=== PATIENT | female | born 1995 | race Caucasian/White ===

== ENCOUNTER 2017-08-31 13:37 | Emergency (ER) | payer SELFPAY ==
[2017-08-31 14:01] LABS: Urine Blood TRACE (NEG); Urine Glucose NEGATIVE (NEG); Urine Protein NEGATIVE (NEG); Urine Specific Gravity <1.005 (1.005-1.030)
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
[2017-08-31 15:09] VITALS: BP 127/83; O2SAT 100
== END 2017-08-31 15:06 | disposition left against medical advice (07) ==
LOC: ER 13:37
DX: F10.129 Alcohol abuse with intoxication, unspecified (principal)
CPT/HCPCS: 81003; 99282

== ENCOUNTER 2018-02-06 03:43 | Emergency (ER) | payer SELFPAY ==
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
[2018-02-06] MEDS ORDERED: KETOROLAC 30 MG/ML INJ ONE (05:34)
[2018-02-06 05:58] VITALS: TEMP 98.8
[2018-02-06 06:01] VITALS: BP 110/78; O2SAT 99
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
== END 2018-02-06 05:43 | disposition home or self-care (01) ==
LOC: ER 03:43
DX: S02.401A Maxillary fracture, unspecified side, initial encounter for closed fracture (principal); S02.30XA Fracture of orbital floor, unspecified side, initial encounter for closed fracture; Y04.2XXA Assault by strike against or bumped into by another person, initial encounter; Y92.009 Unspecified place in unspecified non-institutional (private) residence as the place of occurrence of the external cause; F17.210 Nicotine dependence, cigarettes, uncomplicated; Z88.0 Allergy status to penicillin
CPT/HCPCS: 70450; 70486; 96372; 99285

== ENCOUNTER 2020-09-27 22:14 | Emergency (ER) | payer OTHER, SELFPAY ==
[2020-09-27] MEDS ORDERED: TETANUS & DIPHTHERIA TOX,ADULT 0.5 ML VIAL ONE (23:16)
[2020-09-28] MEDS ORDERED: ACETAMINOPHEN 500 MG TAB ONE (00:45)
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
[2020-09-28 02:26] VITALS: O2SAT 100
[2020-09-28 02:27] VITALS: TEMP 98.1
[2020-09-28 02:28] VITALS: BP 103/74
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
== END 2020-09-28 02:13 | disposition home or self-care (01) ==
LOC: ER 22:14
PROC: 08QPXZZ Repair Left Upper Eyelid, External Approach (ICD-10-PCS; principal; 2020-09-28)
DX: S01.112A Laceration without foreign body of left eyelid and periocular area, initial encounter (principal); V49.40XA Driver injured in collision with unspecified motor vehicles in traffic accident, initial encounter; Z23 Encounter for immunization; Z88.0 Allergy status to penicillin
CPT/HCPCS: 70450; 70486; 72125; 76377; 90471; 90714; 99284